=== PATIENT | male | born 1990 | race Caucasian/White ===

== ENCOUNTER 2017-04-01 12:59 | Emergency (ER) | payer OTHER ==
[~2017-04-01] VITALS: Ht 177.8 cm; Wt 83.9 kg
[2017-04-01 13:00] VITALS: Ht 177.8 cm; Wt 83.9 kg
[2017-04-01 15:12] VITALS: BP 147/93
== END 2017-04-01 15:12 | disposition home or self-care (01) ==
LOC: ED 12:59
DX: S87.82XA Crushing injury of left lower leg, initial encounter (principal); S80.812A Abrasion, left lower leg, initial encounter; X58.XXXA Exposure to other specified factors, initial encounter; Y93.89 Activity, other specified; Y92.89 Other specified places as the place of occurrence of the external cause; Y99.8 Other external cause status